=== PATIENT | male | born 1970 | race Caucasian/White ===

== ENCOUNTER 2021-05-02 20:18 | Inpatient (IN) | payer MEDICAID ==
[~2021-05-02] VITALS: Ht 167.6 cm; Wt 66.0 kg
[2021-05-02] MEDS ORDERED: LORAZEPAM 2MG/ML CPJ IV ONE (21:30)
[2021-05-02 22:15] LABS: BASOPHILS % 0.7 % (0.0-2.0); EOSINOPHILS % 0.2 % (0.0-5.0); HEMATOCRIT. 25.1 % (42.0-52.0); HEMOGLOBIN. 8.1 g/dL (14.0-18.0); LYMPHOCYTES % 9.5 % (20.0-50.0); MEAN CORPUSCULAR HEMOGLOBIN 27.7 pg (28.0-32.0); MEAN CORPUSCULAR VOLUME 85.7 fL (80.0-94.0); MEAN PLATELET VOLUME 10.4 fl (7.4-10.4); MONOCYTES % 13.3 % (2.0-8.0); NEUTROPHILS % 76.3 % (40.0-76.0); RED BLOOD CELL COUNT 2.93 mill/uL (4.7-6.1); RED CELL DISTRIBUTION WIDTH 19.8 % (11.6-14.6)
[2021-05-02] MEDS ORDERED: CHLORDIAZEPOXIDE 25MG CAPSULE PO ONE (22:15)
[2021-05-02 22:21] LABS: CHLORIDE 99 mEq/L (98-107)
[2021-05-02 22:26] LABS: ETHANOL BLOOD < 10 mg/dL
[2021-05-02] MEDS ORDERED: CLONIDINE 0.1MG TABLET PO PRN (22:30)
[2021-05-02] MEDS ORDERED: MAGNESIUM/ALUMINUM HYDROXIDE/SIMETHICONE 30ML UDC PO PRN (22:30)
[2021-05-02] MEDS ORDERED: GUAIFENESIN 200MG/10ML SUGAR FREE UDC PO PRN (22:30)
[2021-05-02] MEDS ORDERED: LORAZEPAM 2MG/ML CPJ IV PRN (22:30)
[2021-05-02] MEDS ORDERED: ACETAMINOPHEN 325MG TABLET PO PRN ×2 (22:30)
[2021-05-02] MEDS ORDERED: NITROGLYCERIN 0.4MG TABLET SL SL PRN (22:30)
[2021-05-02] MEDS ORDERED: ONDANSETRON HCL 4MG/2ML INJ IV PRN (22:30)
[2021-05-02] MEDS ORDERED: KETOROLAC 15MG/ML VIAL IV PRN (22:30)
[2021-05-02] MEDS ORDERED: DOCUSATE SODIUM 100MG CAPSULE PO PRN (22:30)
[2021-05-02] MEDS ORDERED: IPRATROPIUM/ALBUTEROL 0.5-3(2.5)MG/3ML NEB NEB PRN (22:30)
[2021-05-02] MEDS ORDERED: DEXT 5%/0.9% NACL 1,000 ML IV SCH (22:45)
[2021-05-02] MEDS ORDERED: LACTULOSE 20G/30ML UDC PO NR (23:00)
[2021-05-02] MEDS ORDERED: SODIUM POLYSTYRENE SULFONATE 15 G/60 ML BOT PO NR (23:00)
[2021-05-02] MEDS ORDERED: MVI, ADULT NO.1 10 ML, FOLIC ACID 1 MG, THIAMINE HCL 100 MG in SODIUM CHLORIDE 0.9% 1,0... IV NR (23:00)
[2021-05-03 00:18] LABS: TOTAL IRON BINDING CAPACITY 394 ug/dL (250-450)
[2021-05-03 00:35] LABS: *BARBITURATES SCREEN URINE NEGATIVE (NEGATIVE); *BENZODIAZEPINES SCREEN URINE NEGATIVE (NEGATIVE); *COCAINE SCREEN URINE NEGATIVE (NEGATIVE)
[2021-05-03 00:36] LABS: *AMPHETAMINES SCREEN URINE NEGATIVE (NEGATIVE); CANNABINOID URINE SCREEN NEGATIVE (NEGATIVE); METHADONE URINE SCREEN NEGATIVE (NEGATIVE); OPIATES URINE SCREEN NEGATIVE (NEGATIVE); PHENCYCLIDINE URINE SCREEN NEGATIVE (NEGATIVE)
[2021-05-03] MEDS: DILTIAZEM HCL 60MG TABLET PO SCH ×4 (01:00→18:00)
[2021-05-03 01:59] LABS: VITAMIN B12 SERUM 1306 pg/mL (211-911)
[2021-05-03 02:05] LABS: FOLIC ACID (FOLATE) SERUM > 20.00 ng/mL (>5.38)
[2021-05-03 04:33] LABS: EOSINOPHILS % 0.3 % (0.0-5.0); HEMATOCRIT. 24.5 % (42.0-52.0); HEMOGLOBIN. 7.9 g/dL (14.0-18.0); LYMPHOCYTES % 14.9 % (20.0-50.0); MEAN CORPUSCULAR VOLUME 83.7 fL (80.0-94.0); MEAN PLATELET VOLUME 9.2 fl (7.4-10.4); MONOCYTES % 14.6 % (2.0-8.0); NEUTROPHILS % 69.2 % (40.0-76.0); RED BLOOD CELL COUNT 2.93 mill/uL (4.7-6.1); RED CELL DISTRIBUTION WIDTH 19.6 % (11.6-14.6)
[2021-05-03 04:41] LABS: PLATELET 25 x1000/uL (130-400)
[2021-05-03 04:42] LABS: CHLORIDE 107 mEq/L (98-107)
[2021-05-03 04:49] LABS: PHOSPHORUS 1.8 mg/dL (2.5-4.9)
[2021-05-03 04:52] LABS: CREATINE KINASE 561 IU/L (39-308)
[2021-05-03 04:54] LABS: CREATINE KINASE MB FRACTION 4.4 ng/mL (0.5-3.6)
[2021-05-03] MEDS: CHLORDIAZEPOXIDE 25MG CAPSULE PO SCH ×3 (06:00→20:49)
[2021-05-03 06:47] LABS: PLATELET ESTIMATE MARKEDLY DECREASED
[2021-05-03] MEDS ORDERED: MAGNESIUM 2 G PREMIX 50 ML IV SCH (07:45)
[2021-05-03] MEDS ORDERED: KCL 20MEQ/100ML PREMIX 100 ML IV ONE (07:45)
[2021-05-03] MEDS ORDERED: POTASSIUM CHLORIDE 20MEQ/PACKET PO SCH (08:00)
[2021-05-03] MEDS ORDERED: POTASSIUM PHOS,M-BASIC-D-BASIC 30 MMOL in DEXT 5% WATER 500 ML IV SCH ×2 (08:00→16:00)
[2021-05-03] MEDS ORDERED: ENOXAPARIN 40MG/0.4ML SYR SUBCUT SCH (09:00)
[2021-05-03] MEDS: FAMOTIDINE 20MG TABLET PO SCH ×2 (09:00→20:49)
[2021-05-03 12:00] VITALS: BP 125/63
[2021-05-03 13:39] LABS: PLATELET 38 x1000/uL (130-400)
[2021-05-03] MEDS ORDERED: POTASSIUM CHLORIDE 20MEQ/PACKET PO NR (15:00)
[2021-05-03 15:53] LABS: CREATINE KINASE MB FRACTION 3.2 ng/mL (0.5-3.6)
[2021-05-03] MEDS ORDERED: KETOROLAC 30MG/ML VIAL IV PRN (17:57)
[2021-05-03 20:00] VITALS: BP 132/62
[2021-05-03 23:58] VITALS: BP 106/67
[2021-05-04 04:00] VITALS: BP 96/74
[2021-05-04] MEDS: DILTIAZEM HCL 60MG TABLET PO SCH ×4 (05:35→18:05)
[2021-05-04] MEDS: CHLORDIAZEPOXIDE 25MG CAPSULE PO SCH (06:01)
[2021-05-04 06:31] LABS: BASOPHILS % 0.6 % (0.0-2.0); EOSINOPHILS % 5.6 % (0.0-5.0); HEMATOCRIT. 25.1 % (42.0-52.0); HEMOGLOBIN. 8.3 g/dL (14.0-18.0); MEAN PLATELET VOLUME 9.2 fl (7.4-10.4); MONOCYTES % 13.8 % (2.0-8.0); RED BLOOD CELL COUNT 2.95 mill/uL (4.7-6.1)
[2021-05-04 06:37] LABS: CHLORIDE 109 mEq/L (98-107)
[2021-05-04 06:45] LABS: PHOSPHORUS 2.9 mg/dL (2.5-4.9)
[2021-05-04 06:53] LABS: PLATELET 26 x1000/uL (130-400)
[2021-05-04 08:00] VITALS: BP 118/73
[2021-05-04] MEDS ORDERED: POTASSIUM CHLORIDE 20MEQ/PACKET PO NR (08:00)
[2021-05-04] MEDS: FAMOTIDINE 20MG TABLET PO SCH ×2 (09:23→22:41)
[2021-05-04] MEDS ORDERED: MAGNESIUM 1 G PREMIX 100 ML IV NR (09:30)
[2021-05-04 12:00] VITALS: BP 115/71
[2021-05-04] MEDS: CHLORDIAZEPOXIDE 10MG CAPSULE PO SCH ×2 (13:06→22:41)
[2021-05-04 16:00] VITALS: BP 103/69
[2021-05-04 20:00] VITALS: BP 132/63
[2021-05-05] VITALS: BP 108/63
[2021-05-05 04:00] VITALS: BP 104/66
[2021-05-05] MEDS: DILTIAZEM HCL 60MG TABLET PO SCH ×2 (05:54)
[2021-05-05] MEDS: CHLORDIAZEPOXIDE 10MG CAPSULE PO SCH (05:58)
[2021-05-05 08:00] VITALS: BP 101/58
[2021-05-05] MEDS: FAMOTIDINE 20MG TABLET PO SCH (08:30)
[2021-05-05 08:43] LABS: HEMATOCRIT. 25.7 % (42.0-52.0); HEMOGLOBIN. 8.4 g/dL (14.0-18.0); MEAN CORPUSCULAR HEMOGLOBIN 27.6 pg (28.0-32.0); MEAN CORPUSCULAR VOLUME 84.8 fL (80.0-94.0); RED BLOOD CELL COUNT 3.03 mill/uL (4.7-6.1); RED CELL DISTRIBUTION WIDTH 19.9 % (11.6-14.6)
[2021-05-05 08:54] LABS: CHLORIDE 107 mEq/L (98-107)
[2021-05-05 09:01] LABS: PHOSPHORUS 3.8 mg/dL (2.5-4.9)
[2021-05-05 09:07] LABS: PLATELET 40 x1000/uL (130-400)
[2021-05-05 11:12] VITALS: BP 101/68
[2021-05-05 11:30] LABS: PLATELET ESTIMATE MARKEDLY DECREASED
== END 2021-05-05 11:47 | disposition home or self-care (01) | DRG 53 ==
LOC: ER 20:18 → MICUSO 22:14 → 7EST 05-03 12:43
PROVIDERS: ATTEND Internal Medicine
DX: G40.89 Other seizures (principal); D61.818 Other pancytopenia; G92.8 Other toxic encephalopathy; E44.0 Moderate protein-calorie malnutrition; Y90.0 Blood alcohol level of less than 20 mg/100 ml; E87.1 Hypo-osmolality and hyponatremia; E87.5 Hyperkalemia; Z20.822 Contact with and (suspected) exposure to COVID-19; F10.239 Alcohol dependence with withdrawal, unspecified; F17.200 Nicotine dependence, unspecified, uncomplicated; Z68.27 Body mass index [BMI] 27.0-27.9, adult
CPT/HCPCS: 36415; 80053; 80305; 80320; 82140; 82550; 82553; 82607; 82746; 83540; 83550; 83735; 84100; 84484; 85025; 87426; 93005; 93970; 97162; 99285; J2060; J3411; J3475; J3480; J3490; J7030; J7060; G0480

== ENCOUNTER 2022-02-05 15:11 | Emergency (ER) | payer MEDICAID ==
[~2022-02-05] VITALS: Ht 165.1 cm; Wt 75.0 kg
[2022-02-05 15:19] VITALS: BP 116/69
[2022-02-05] MEDS ORDERED: KETOROLAC 60MG/2ML VIAL IM ONE (16:30)
[2022-02-05] MEDS ORDERED: IBUP-2029 MT (16:30)
== END 2022-02-05 17:15 | disposition home or self-care (01) ==
LOC: ER 15:11
DX: S92.322A Displaced fracture of second metatarsal bone, left foot, initial encounter for closed fracture (principal); S92.332A Displaced fracture of third metatarsal bone, left foot, initial encounter for closed fracture; M85.872 Other specified disorders of bone density and structure, left ankle and foot; Y93.9 Activity, unspecified; W19.XXXA Unspecified fall, initial encounter; Y92.89 Other specified places as the place of occurrence of the external cause
CPT/HCPCS: 29505; 73630; 96372; 99283; J1885